=== PATIENT | male | born 2000 | race Two or more races ===

== ENCOUNTER 2025-06-18 19:47 | Emergency (ER) | payer MEDICAID, OTHER ==
[~2025-06-18] VITALS: Ht 180.3 cm; Wt 93.4 kg
--- NOTE | 2025-06-18 19:59 | ED.PDOC ---
History of Present Illness HPI Comments 25 y.o male presents to the ED for a chief complaint of SOB associated with a cough, pruritus of his hands, and generalized hives today. 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 Patient also mentions being diagnosed with influenza yesterday at urgent care and presents today with ongoing flu symptoms (cough) and sweats. He denies any nausea, vomiting, fever, chills, difficulty swallowing, drooling, or chest pain. Patient has history of childhood asthma. Time Seen by MD: 19:50 Reviewed Notes: Nurses Notes, Medications, Allergies Allergies: Coded Allergies: NO KNOWN ALLERGIES (Unverified , 06/18/25) Home Meds Active Scripts Albuterol Sulfate (VENTOLIN MDI) 90 Mcg Ih, 90 MCG IN Q12HP PRN for 5 Days, #1 INH Prov:PASCUAL TAYLOR MD 06/18/25 Methylprednisolone (Medrol Dosepak) 4 Mg Bruno, 4 MG PO UD, #21 TAB UAD Prov:PASCUAL TAYLOR MD 06/18/25 Information Source: Patient Mode of Arrival: Ambulatory Severity: Moderate Timing: Hours Duration: Since onset Past Medical History PAST MEDICAL HISTORY: Asthma Surgical History: Denies all surgeries Family History Family History: Family hx of DM Social History Smoker: Cigarettes Alcohol: Occasionally Drugs: Denies Drug Use Lives In: Home Constitutional: denies: chills, diaphoresis, fatigue, fever, malaise, sweats, weakness, others EENTM: denies: blurred vision, double vision, ear bleeding, ear discharge, ear drainage, ear pain, ear ringing, eye pain, eye redness, hearing loss, mouth pain, mouth swelling, nasal discharge, nose bleeding, nose congestion, nose pain, photophobia, tearing, throat pain, throat swelling, voice changes, others Respiratory: reports: SOB at rest, shortness of breath; denies: cough, hemoptysis, orthopnea, SOB with excertion, stridor, wheezing, others Cardiovascular: denies: chest pain, dizzy spells, diaphoresis, Dyspnea on exertion, edema, irregular heart beat, left arm pain, lightheadedness, palpitations, PND, syncope, others Gastrointestinal: denies: abdomen distended, abdominal pain, blood streaked bowels, constipated, diarrhea, dysphagia, difficulty swallowing, hematemesis, melena, nausea, poor appetite, poor fluid intake, rectal bleeding, rectal pain, vomiting, others Genitourinary: denies: burning, dysuria, flank pain, frequency, hematuria, incontinence, penile discharge, penile sore, pain, testicle pain, testicle swelling, urgency, others Neurological: denies: dizziness, fainting, headache, left sided numbness, left sided weakness, numbness, paresthesia, pre-existing deficit, right sided numbness, right sided weakness, seizure, speech problems, tingling, tremors, weakness, others Musculoskeletal: denies: back pain, gout, joint pain, joint swelling, muscle p ain, muscle stiffness, neck pain, others Integumetry: denies: bruises, change in color, change in hair/nails, dryness, laceration, lesions, lumps, rash, wounds, others Allergic/Immunocompromised: reports: Hives, Itching; denies: Difficulty Healing, Frequent Infections, others Hematologic/Lymphatic: denies: anemia, blood clots, easy bleeding, easy bruising, swollen glands, others Endocrine: denies: excessive hunger, excessive sweating, excessive thirst, excessive urination, flushing, intolerance to cold, intolerance to heat, unexplained weight gain, unexplained weight loss, others Psychiatric: denies: anxiety, bipolar disorder, depression, hopeless, panic disorder, schizophrenia, sleepless, suicidal, others All Other Systems: Reviewed and Negative Physical Exam General Appearance: Mild Distress HEENT: Normal ENT Inspection, Pharynx Normal, TMs Normal Neck: Full Range of Motion, Non-Tender, Normal, Normal Inspection Respiratory: Chest Non-Tender, No Accessory Muscle Use, No Respiratory Distres s, Wheezing Cardiovascular: No Edema, No JVD, No Murmur, No Gallop, Normal Peripheral Pulses, Regular Rate/Rhythm Breast Exam: Deferred Gastrointestinal: No Organomegaly, Non Tender, No Pulsatile Mass, Normal Bowel Sounds, Soft Genitalia: Deferred Pelvic: Deferred Rectal: Deferred Extremities: No calf tenderness, Normal capillary refill, Normal inspection, Normal range of motion, Non-tender, No pedal edema Musculoskeletal : Apperance: Normal 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 Was a procedure done?: No Differential Dx Considerations may include: Influenza, Viral syndrome, Allergic reaction X-Ray, Labs, Meds, VS Vital Signs Date Time Temp Pulse Resp B/P (MAP) Pulse Ox O2 Delivery O2 Flow Rate FiO2 06/18/25 20:27 20 94 Room Air* 0 21 06/18/25 20:05 102.1 06/18/25 19:55 18 97 Room Air* 0 06/18/25 19:55 102.1 125 18 119/80 (93) 97 102.1 Lab Test 06/18/25 20:22 06/18/25 20:21 Range/Units Influenza Type A Antigen Negative Negative Influenza Type B Antigen Negative Negative SARS-CoV-2 Antigen (Rapid) Negative NEGATIVE White Blood Count 8.0 4.4-10.8 10^3/uL Red Blood Count 5.71 4.5-5.90 10^6/uL Hemoglobin 16.7 13.5-17.5 g/dL Hematocrit 49.2 41.0-53.0 % Mean Corpuscular Volume 86.2 80.0-100.0 fL Mean Corpuscular Hemoglobin 29.3 28.0-32.0 pg Mean Corpuscular Hemoglobin Concent 34.0 32.0-36.0 g/dL Red Cell Distribution Width 13.5 11.8-14.3 % Platelet Count 235 140-450 10^3/uL Mean Platelet Volume 8.1 6.9-10.8 fL Neutrophils (%) (Auto) 84.5 H 37.0-80.0 % Lymphocytes (%) (Auto) 7.7 L 10.0-50.0 % Monocytes (%) (Auto) 6.9 0.0-12.0 % Eosinophils (%) (Auto) 0.6 0.0-7.0 % Basophils (%) (Auto) 0.3 0.0-2.0 % Neutrophils # (Auto) 6.7 1.6-8.6 10 ^3/uL Lymphocytes # (Auto) 0.6 0.4-5.4 10 ^3/uL Monocytes # (Auto) 0.6 0-1.3 10 ^3/uL Eosinophils # (Auto) 0.1 0-0.8 10 ^3/uL Basophils # (Auto) 0 0-0.2 10 ^3/uL Nucleated Red Blood Cells 0.1 % Sodium Level 138 136-145 mmol/L Potassium Level 3.7 3.5-5.1 mmol/L Chloride Level 101 98-107 mmol/L Carbon Dioxide Level 27 20-31 mmol/L Anion Gap 10 5-15 Blood Urea Nitrogen 12 9-23 mg/dL Creatinine 1.31 H 0.700-1.30 mg/dL Glomerular Filtration Rate Calc 78 >90 mL/min BUN/Creatinine Ratio 9.2 L 10.0-20.0 Serum Glucose 106 74-106 mg/dL Lactic Acid Level 0.9 0.4-2.0 mmol/L Calcium Level 10.1 8.7-10.4 mg/dL Current Medications Medications (Trade) Dose Ordered Sig/Mario Route Start Time Stop Time Status Last Admin Acetaminophen (Tylenol Tablet) 650 mg ONCE ONCE PO 06/18/25 19:58 06/18/25 19:59 DC 06/18/25 20:05 Methylprednisolone Sodium Succinate (Solu Medrol) 125 mg ONCE ONCE IV 06/18/25 20:00 06/18/25 20:01 DC 06/18/25 21:00 Ipratropium [place] (Atrovent Medneb) 1 mg ONCE ONCE N 06/18/25 20:00 06/18/25 20:01 DC 06/18/25 20:23 Albuterol (Ventolin Medneb) 10 mg ONCE ONCE HHN 06/18/25 20:00 06/18/25 20:01 DC 06/18/25 20:21 The chest x-ray is negative The patient was given a breathing treatment of albuterol and Atrovent The patient was also given Solu-Medrol 125 mg IV push The patient was given acetaminophen 650 mg by mouth for the fever The chemistry panel is within normal limits The COVID test is negative The influenza a and influenza B are negative At this time, the patient is being discharged and will follow up with the [facility] The patient will return to the emergency department's condition worsens. Images Reviewed?: Images reviewed and evaluated by me Time of 1ST Reevaluation: 19:55 Reevaluation 1ST: Unchanged Patient Education/Counseling: Diagnosis, Treatment, Prognosis Family Education/Counseling: No Family Present SEPSIS Sepsis Screen Physician Orders Med Neb Initial Treatment (06/18/25 19:58) Heplock Iv (06/18/25 19:58) Pulse Oximetry (06/18/25 19:58) Publication Manager (06/18/25 19:58) Blood Pressure (06/18/25 19:58) Chest Two Views Routine (06/18/25 19:58) Blood Culture (06/18/25 19:58) Vital Signs Date Time Temp Pulse Resp B/P (MAP) Pulse Ox O2 Delivery O2 Flow Rate FiO2 06/18/25 20:27 20 94 Room Air* 0 21 06/18/25 20:05 102.1 06/18/25 19:55 18 97 Room Air* 0 21 06/18/25 19:55 102.1 125 18 119/80 (93) 97 102.1 Laboratory Tests Test 06/18/25 20:21 Lactic Acid Level 0.9 mmol/L (0.4-2.0) White Blood Count 8.0 10^3/uL (4.4-10.8) Medications Medications Dose Ordered Sig/Mario Route Start Time Stop Time Status Last Admin Dose Admin Acetaminophen 650 mg ONCE ONCE PO 06/18/25 19:58 06/18/25 19:59 DC 06/18/25 20:05 Albuterol 10 mg ONCE ONCE N 06/18/25 20:00 06/18/25 20:01 DC 06/18/25 20:21 Ipratropium [place] 1 mg ONCE ONCE N 06/18/25 20:00 06/18/25 20:01 DC 06/18/25 20:23 Methylprednisolone Sodium Succinate 125 mg ONCE ONCE IV 06/18/25 20:00 06/18/25 20:01 DC 06/18/25 21:00 Departure 1 Departure Time of Disposition: 21:12 Impression: Primary Impression: Acute allergic reaction Qualified Codes: T78.40XA - Allergy, unspecified, initial encounter Additional Impression: Fever Qualified Codes: R50.9 - Fever, unspecified Disposition: HOME / SELF CARE / HOMELESS Condition: Fair e-Prescriptions Albuterol Sulfate (VENTOLIN MDI) 90 Mcg Ih 90 MCG IN Q12HP PRN for 5 Days, #1 INH Prov: PASCUAL TAYLOR MD 06/18/25 Methylprednisolone (Medrol Dosepak) 4 Mg Bruno 4 MG PO UD, #21 TAB UAD Prov: PASCUAL TAYLOR MD 06/18/25 Discharged With: Self Critical Care Note Critical Care Time?: No Stability Stability form required: No I personally scribed for PASCUAL TAYLOR MD ([email or web address]) on 06/18/25 at 19:59. Electronically submitted by Ursula Chaves ([facility]). PASCUAL TAYLOR MD Jun 18, 2025 19:59
[2025-06-18] MEDS: ACETAMINOPHEN 325 MG TAB PO ONE (20:05)
[2025-06-18] MEDS: ALBUTEROL SULF 2.5 MG/0.5ML(0.5%) NEB SOLN HHN ONE (20:21)
[2025-06-18] MEDS: IPRATROPIUM BROM 0.5 MG/2.5ML INH SOL HHN ONE (20:23)
[2025-06-18 20:40] LABS: Anion Gap 10 (5-15); Carbon Dioxide 27 mmol/L (20-31); Chloride 101 mmol/L (98-107); Potassium 3.7 mmol/L (3.5-5.1); Sodium 138 mmol/L (136-145)
[2025-06-18 20:41] LABS: Calcium 10.1 mg/dL (8.7-10.4)
[2025-06-18 20:42] LABS: Hematocrit 49.2 % (41.0-53.0); Hemoglobin 16.7 g/dL (13.5-17.5); Mean Corpuscular Hemoglobin 29.3 pg (28.0-32.0); Mean Corpuscular Volume 86.2 fL (80.0-100.0); Nucleated Red Blood Cells % 0.1 %
[2025-06-18 20:46] LABS: BUN/Creatinine Ratio 9.2 (10.0-20.0); Blood Urea Nitrogen 12 mg/dL (9-23)
[2025-06-18 20:47] LABS: Glucose 106 mg/dL (74-106)
[2025-06-18 20:53] LABS: COVID19 ANTIGEN SOFIA FIA NEGATIVE (NEGATIVE)
--- NOTE | 2025-06-18 20:55 | DVH ---
XY CHEST TWO VIEWS ROUTINE CLINICAL HISTORY: sob COMPARISON: None TECHNIQUE: Frontal and lateral view of the chest was obtained FINDINGS: Lines and Tubes: None Lungs: No focal consolidation. Pleura: No effusion. No pneumothorax. Cardiomediastinal contours: Unremarkable Bones: No acute osseous abnormality. IMPRESSION: 1. No acute cardiopulmonary disease.
[2025-06-18] MEDS: methylPREDNISolone SOD SUCC 125 MG/2 ML VL IV ONE (21:00)
[2025-06-18] MEDS ORDERED: ALBUAER3 IN (21:11)
[2025-06-18] MEDS ORDERED: METH4PAK PO (21:11)
[2025-06-18 21:23] VITALS: BP 116/58; PULSE 76; RESP 17; TEMP 100.7; O2SAT 95
== END 2025-06-18 22:04 | disposition home or self-care (01) ==
LOC: ER 19:47
DX: T78.49XA Other allergy, initial encounter (principal); R50.9 Fever, unspecified; F17.210 Nicotine dependence, cigarettes, uncomplicated; J45.909 Unspecified asthma, uncomplicated; Z20.822 Contact with and (suspected) exposure to COVID-19; Z79.899 Other long term (current) drug therapy; X58.XXXA Exposure to other specified factors, initial encounter
CPT/HCPCS: 36415; 71046; 80048; 83605; 85025; 87040; 87426; 87804; 94640; 96374; 99284; J2919